=== PATIENT | male | born 1970 | race Caucasian/White ===

== ENCOUNTER 2017-08-25 19:17 | Emergency (ER) | payer OTHER ==
--- NOTE | 2017-08-25 19:42 | RAD ---
LEFT ELBOW FOUR VIEWS: 08/25/17 HISTORY: Trauma to elbow with laceration. There is air within the soft tissues consistent with a history of laceration. I do not appreciate any radiopaque foreign bodies. Some arthritic changes of the elbow. IMPRESSION: No evidence of fracture. POS: [facility]
[2017-08-25] MEDS ORDERED: Adacel (T-DAP) 0.5 ML VIAL ONE (20:24)
[2017-08-25] MEDS ORDERED: Bacitracin Zinc 1 Packet ONE (21:06)
== END 2017-08-25 21:18 | disposition home or self-care (01) ==
LOC: SCSER 19:17
DX: S51.012A Laceration without foreign body of left elbow, initial encounter (principal); I10 Essential (primary) hypertension; Z79.899 Other long term (current) drug therapy; W22.8XXA Striking against or struck by other objects, initial encounter
CPT/HCPCS: 90471; 90715

== ENCOUNTER 2017-10-16 08:48 | Outpatient (CLI) | payer OTHER ==
--- NOTE | 2017-10-16 12:52 | MRI ---
MRI OF LEFT ELBOW PERFORMED WITH CONTRAST ENHANCEMENT: Date: 10/16/17 HISTORY: Evaluation for osteomyelitis. Patient had an area drained around Raymond and it is still sore. No p recontrast exam was performed as the insurance would not approve a precontrast study. This does somew hat limit examination. FINDINGS: There are edema changes within subcutaneous fat along the posterior aspect of the ulna. I do not see any abnormal deep extension of these changes. No fluid collection is appreciated. No enhancement of t he radius or ulna to suggest osteomyelitis and there is no evidence of any significant elbow joint ef fusion. The biceps and triceps tendons appear intact. IMPRESSION: No MR evidence for osteomyelitis. No signs of abscess. There is induration to the soft tissue, more s pecifically these changes appear confined to the subcutaneous fat. POS: [facility]
== END 2017-10-16 08:49 | disposition home or self-care (01) ==
LOC: SCSMRI 08:48
PROVIDERS: ATTEND Internal Medicine
DX: M86.9 Osteomyelitis, unspecified (principal)